=== PATIENT | female | born 1960 | race Caucasian/White ===

== ENCOUNTER 2017-03-13 08:43 | Day surgery (SDC) | payer BC ==
[2017-03-10 14:11] LABS: HEMATOCRIT 40.3 % (36.0-48.0); HEMOGLOBIN 13.8 g/dL (12.0-16.0)
--- NOTE | ~2017-03-13 | OP ---
Record Of Operation [facility] [address] [place]. [address] NAME: CHRIS MOORE : 60 STATUS : [facility]#: [id number] AGE: 56 ADM/REG DATE : 03/13/17 MR#: [id number] REPORT SERV DATE: 03/14/17 DICTATED BY: BRYAN KOLB DATE: 03/13/17 REPORT STATUS : Draft TRANSCRIBED BY: MODL DATE: 03/13/17 DATE OF PROCEDURE: 03/13/2017 PREOPERATIVE DIAGNOSIS: Left cervical lymphadenopathy, rule out lymphoma. POSTOPERATIVE DIAGNOSIS: Left cervical lymphadenopathy, rule out lymphoma. PROCEDURE PERFORMED: Deep cervical lymph node biopsy, left level 5. SURGEON: Bryan Kolb M.D. COMMUNITY DEVELOPMENT SPECIALIST: . ANESTHESIA: General. COMPLICATIONS: None. CONDITION: Stable to recovery. INDICATIONS: This 56-year-old female with bulky left level 4 and 5 lymphadenopathy. Risks, benefits, and alternatives to deep cervical lymph node biopsy were explained, and she agreed. PROCEDURE IN DETAIL: The patient was identified in preoperative holding, taken back to the operating room, and placed supine on the operating room table. General anesthesia was established. A preexisting skin crease in the left neck was marked with a surgical ink pen approximately 3 cm and infiltrated with 2 mL of 1% lidocaine with 1:100,000 epinephrine. Prior to this a time-out had been called, and the procedure. and the patient were confirmed. She was prepped and draped in a standard fashion for the operation. Using 2.5 x loupe magnification and headlight illumination, the operation commenced. A 15 blade was used to make the skin incision through the skin and the platysma. Subplatysmal flaps were elevated and then the sternomastoid muscle was divided in its lower third vertically in the direction of the muscle fibers to get to level 4/5 deep cervical lymph nodes. Three fleshy appearing lymph nodes were removed with blunt dissection, bipolar cautery, and Harmonic scalpel. These were sent to Pathology for frozen section analysis. Touch prep showed suspicion for lymphoma. The wound was irrigated and closed in layers by reapproximating the sternomastoid muscle with 3-0 interrupted Vicryl suture and then closing the platysma with 3-0 interrupted Vicryl suture and the skin with a 5-0 running Monocryl followed by Steri-Strips. The patient was awakened and taken to Recovery in stable condition. PH/MODL Bryan Kolb M.D. Record Of [address] [address] NAME: CHRIS MOORE : 60 STATUS : [facility] PAT#: [id number] AGE: 56 ADM/REG DATE : 03/13/17 MR#: [id number] REPORT SERV DATE: 03/14/17 DICTATED BY: BRYAN KOLB DATE: 03/13/17 REPORT STATUS : Draft TRANSCRIBED BY: SANKET DATE: 03/13/17 / [id number] CC: Terence Justin M.D.
[~2017-03-13 08:43] MED LIST: ALIGN4 MG PO; AMOXIL500 MG PO; CYANO1000T PO; FISH-EPA1000 MG PO; MULTIVITAMI1 PO; PATADAY; PRILO PO; [UNRECOGNIZED DRUG - OTHER]
[2017-05-22] MEDS ORDERED: COMP5B PO (14:01)
[2017-05-22] MEDS ORDERED: ATV.5 PO (14:02)
== END 2017-03-13 13:50 | disposition home or self-care (01) ==
LOC: SDC 08:43
PROVIDERS: Specialist
PROC: 07B20ZX Excision of Left Neck Lymphatic, Open Approach, Diagnostic (ICD-10-PCS; principal; 2017-03-13 10:15)
DX: C82.31 Follicular lymphoma grade IIIa, lymph nodes of head, face, and neck (principal); G43.909 Migraine, unspecified, not intractable, without status migrainosus; T75.3XXA Motion sickness, initial encounter; R00.1 Bradycardia, unspecified; Z88.1 Allergy status to other antibiotic agents; Z88.8 Allergy status to other drugs, medicaments and biological substances; Z79.2 Long term (current) use of antibiotics; Z88.2 Allergy status to sulfonamides; Z79.899 Other long term (current) drug therapy; Z90.710 Acquired absence of both cervix and uterus; Z98.890 Other specified postprocedural states
CPT/HCPCS: 85014; 85018; 88307; 88331; 88341; 88342; 88360; 93005; J0690; J2250; J2405; J3010

== ENCOUNTER 2017-03-25 09:13 | Day surgery (SDC) | payer BC ==
[2017-03-25 10:14] LABS: BASOPHILS ABSOLUTE 0.04 10/3/uL (0.0-0.16); EOSINOPHILS 2.2 %; EOSINOPHILS ABSOLUTE 0.09 10/3/uL (0.0-0.53); HEMOGLOBIN 13.3 g/dL (12.0-16.0); LYMPHOCYTES 31.7 %; MANUAL DIFF NO %; MEAN CORPUSCULAR HEMOGLOB 32.8 pg (26.0-34.0); MEAN CORPUSCULAR VOLUME 93.6 fL (80-100); MONOCYTES 8.5 %; MONOCYTES ABSOLUTE 0.35 10/3/uL (0.21-1.20); NEUTROPHILS 56.6 %; NEUTROPHILS ABSOLUTE 2.32 10/3/uL (2.02-8.40); PLATELET COUNT 266 10/3/uL (150-400); RBC DISTRIBUTION WIDTH 11.9 % (12.0-16.0); RED CELL COUNT 4.06 10/6/uL (4.0-5.6); WHITE BLOOD CELLS 4.1 10/3/uL (4.5-10.5)
[2017-03-25 10:25] LABS: CALCIUM, SERUM 9.3 MG/DL (8.5-10.4); CHLORIDE, SERUM 110 MMOL/L (96-112); CO2 (CARBON DIOXIDE) 31 MMOL/L (24-34); CREATININE 0.82 MG/DL (0.55-1.02); GFR AFRICAN AMERICAN 93 ML/MIN (>=60); GFR NON AFRICAN AMERICAN 80 ML/MIN (>=60); GLUCOSE, SERUM 92 MG/DL (60-99); POTASSIUM, SERUM 3.8 MMOL/L (3.5-5.3); SODIUM, SERUM 145 MMOL/L (135-148)
[2017-03-25 10:26] LABS: BUN (BLOOD UREA NITROGEN) 13 MG/DL (6-23)
[2017-05-22] MEDS ORDERED: COMP5B PO (14:01)
[2017-05-22] MEDS ORDERED: ATV.5 PO (14:02)
== END 2017-03-25 11:50 | disposition home or self-care (01) ==
LOC: SDC 09:13
PROVIDERS: Internal Medicine Hematology & Oncology; Pathology Cytopathology
PROC: 07DR3ZX Extraction of Iliac Bone Marrow, Percutaneous Approach, Diagnostic (ICD-10-PCS; principal; 2017-03-25 11:00)
DX: C82.90 Follicular lymphoma, unspecified, unspecified site (principal); Z88.2 Allergy status to sulfonamides; Z88.1 Allergy status to other antibiotic agents; Z88.6 Allergy status to analgesic agent; Z88.8 Allergy status to other drugs, medicaments and biological substances
CPT/HCPCS: 80048; 85025; 85045; 88305; 88311; 88313